=== PATIENT | female | born 1985 | race African-American/Black ===

== ENCOUNTER 2021-01-26 01:02 | Inpatient (IN) | payer MEDICAID, OTHER ==
[~2021-01-26] VITALS: Ht 152.4 cm; Wt 91.2 kg
[2021-01-26] MEDS ORDERED: BUTORPHANOL TARTRATE 2 MG/ML VIAL IV PRN (02:30)
[2021-01-26] MEDS ORDERED: NALOXONE HCL 0.4 MG/ML 1ML VIAL IM PRN (02:30)
[2021-01-26] MEDS ORDERED: METHYLERGONOVINE MALEATE 0.2 MG/ML IM PRN (02:30)
[2021-01-26] MEDS ORDERED: CLINDAMYCIN 900 MG in DEXTROSE 5% WATER 50 ML IV SCH (02:30)
[2021-01-26] MEDS: LACTATED RINGERS 1,000 ML IV SCH ×2 (02:44→09:09)
[2021-01-26] MEDS ORDERED: CARBOPROST TROMETHAMINE 250 MCG/ML AMPUL IM PRN (03:00)
[2021-01-26] MEDS ORDERED: LIDOCAINE HCL 1% 20ML VIAL (Pyxis) INJ INFIL SCH (03:00)
[2021-01-26] MEDS ORDERED: DEXT 5%/LR + PITOCIN 20UNITS/L 1,000 ML IV SCH (03:00)
[2021-01-26] MEDS ORDERED: MISOPROSTOL 200MCG TABLET VG NR (03:00)
[2021-01-26] MEDS: CLINDAMYCIN IN 0.9 % SOD CHLOR 50 ML IV SCH ×2 (03:23→11:29)
[2021-01-26 03:28] LABS: BASOPHILS % 0.7 % (0.0-2.0); EOSINOPHILS % 1.4 % (0.0-5.0); HEMATOCRIT. 43.1 % (36.0-48.0); HEMOGLOBIN. 14.6 g/dL (12.0-16.0); LYMPHOCYTES % 26.2 % (20.0-50.0); MEAN CORPUSCULAR HEMOGLOBIN 30.8 pg (28.0-32.0); MEAN CORPUSCULAR VOLUME 90.6 fL (81.0-99.0); MONOCYTES % 8.5 % (2.0-8.0); NEUTROPHILS % 63.2 % (40.0-76.0); PLATELET 257 x1000/uL (130-400); RED BLOOD CELL COUNT 4.76 mill/uL (4.2-5.4); RED CELL DISTRIBUTION WIDTH 14.6 % (11.6-14.6)
[2021-01-26 03:32] LABS: CLARITY URINE TURBID (CLEAR); COLOR URINE YELLOW (YELLOW); KETONES URINE 1+ (NEGATIVE); LEUKOCYTE ESTERASE URINE TRACE (NEGATIVE); NITRITE URINE NEGATIVE (NEGATIVE); OCCULT BLOOD URINE TRACE (NEGATIVE); PH URINE 6.5 (4.5-8.0); PROTEIN URINE 2+ (NEGATIVE); SPECIFIC GRAVITY URINE 1.013 (1.005-1.030); UROBILINOGEN URINE 0.2 E.U./dL (0.2-1.0)
[2021-01-26 03:37] LABS: PARTIAL THROMBOPLASTIN TIME 28.1 sec (23.4-31.0); PROTHROMBIN TIME 10.7 sec (9.6-11.0)
[2021-01-26] MEDS ORDERED: PNV1TABL50 PO (03:39)
[2021-01-26] MEDS ORDERED: METFORMIN (03:39)
[2021-01-26 03:41] LABS: *AMPHETAMINES SCREEN URINE NEGATIVE (NEGATIVE); *BARBITURATES SCREEN URINE NEGATIVE (NEGATIVE); *BENZODIAZEPINES SCREEN URINE NEGATIVE (NEGATIVE); METHADONE URINE SCREEN NEGATIVE (NEGATIVE); OPIATES URINE SCREEN NEGATIVE (NEGATIVE)
[2021-01-26 03:42] LABS: *COCAINE SCREEN URINE NEGATIVE (NEGATIVE); CANNABINOID URINE SCREEN NEGATIVE (NEGATIVE); PHENCYCLIDINE URINE SCREEN NEGATIVE (NEGATIVE)
[2021-01-26 04:07] LABS: HEPATITIS B SURFACE ANTIGEN NEGATIVE
[2021-01-26] MEDS ORDERED: FENTANYL CITRATE/PF 50MCG/ML 2ML VIAL ONE (07:20)
[2021-01-26] MEDS ORDERED: ROPIVACAINE HCL/PF EPIDURAL 200 ML EPI ONE (07:20)
[2021-01-26] MEDS ORDERED: LIDOCAINE HCL 2%/EPINEPHRINE 1:100,000 20 ML VIAL INFIL ONE (07:43)
[2021-01-26] MEDS ORDERED: PHENYLEPHRINE HCL 10 MG/ML 1ML (IV VIAL) IV ONE (07:52)
[2021-01-26] MEDS ORDERED: TERBUTALINE SULFATE 1MG/ML VIAL SUBCUT PRN (08:00)
[2021-01-26] MEDS ORDERED: ACETAMINOPHEN WITH CODEINE 300/30MG TABLET PO PRN (15:15)
[2021-01-26] MEDS ORDERED: DIPHENHYDRAMINE 25MG CAPSULE PO PRN (15:15)
[2021-01-26] MEDS ORDERED: HEMORRHOIDAL SUPP PR PRN (15:15)
[2021-01-26] MEDS ORDERED: IBUPROFEN 400MG TABLET PO PRN (15:15)
[2021-01-26] MEDS ORDERED: BISACODYL 10MG SUPP PR PRN (15:15)
[2021-01-26] MEDS ORDERED: RHO(D) IMMUNE GLOBULIN 300 MCG/SYR IM PRN (15:15)
[2021-01-26] MEDS: IBUPROFEN 800MG TABLET PO PRN (16:28)
[2021-01-26 20:00] VITALS: BP 126/81
[2021-01-27] VITALS: BP 118/70
[2021-01-27 04:00] VITALS: BP 120/80
[2021-01-27 06:43] LABS: BASOPHILS % 0.5 % (0.0-2.0); EOSINOPHILS % 0.3 % (0.0-5.0); HEMATOCRIT. 36.2 % (36.0-48.0); HEMOGLOBIN. 12.2 g/dL (12.0-16.0); LYMPHOCYTES % 15.2 % (20.0-50.0); MEAN CORPUSCULAR HEMOGLOBIN 30.4 pg (28.0-32.0); MEAN CORPUSCULAR VOLUME 90.6 fL (81.0-99.0); MEAN PLATELET VOLUME 8.6 fl (7.4-10.4); MONOCYTES % 8.9 % (2.0-8.0); NEUTROPHILS % 75.1 % (40.0-76.0); PLATELET 211 x1000/uL (130-400); RED CELL DISTRIBUTION WIDTH 15.2 % (11.6-14.6)
[2021-01-27 08:00] VITALS: BP 112/75
[2021-01-27] MEDS: SIMETHICONE 80MG TABLET CHEW PO SCH ×3 (08:31→20:29)
[2021-01-27] MEDS: FERROUS SULFATE 325MG TABLET PO SCH ×3 (08:31→17:30)
[2021-01-27] MEDS: IBUPROFEN 800MG TABLET PO PRN ×2 (08:32→20:31)
[2021-01-27] MEDS: MAGNESIUM/ALUMINUM HYDROXIDE/SIMETHICONE 30ML UDC PO SCH ×5 (08:32→20:38)
[2021-01-27] MEDS ORDERED: PRENATAL VIT/FE FUMARATE/FA TABLET PO SCH (09:00)
[2021-01-27] MEDS ORDERED: METFORMIN HCL 500MG TABLET PO SCH (12:00)
[2021-01-27 16:00] VITALS: BP 90/57
[2021-01-27 20:00] VITALS: BP 124/85
[2021-01-27] MEDS: DOCUSATE SODIUM 100MG CAPSULE PO SCH ×2 (20:29→20:37)
[2021-01-28] VITALS: BP 118/82
[2021-01-28 04:00] VITALS: BP 113/89
[2021-01-28] MEDS ORDERED: IBUP-2030 PO (06:24)
[2021-01-28 07:45] VITALS: BP 111/81
== END 2021-01-29 09:55 | disposition left against medical advice (07) | DRG 560 ==
LOC: 8 EST LDRP 01:02 → OBSVTOIN 01:02 → 8EST 16:48
PROVIDERS: ADMIT Obstetrics & Gynecology; ATTEND Obstetrics & Gynecology
PROC: 10E0XZZ Delivery of Products of Conception, External Approach (ICD-10-PCS; principal; 2021-01-26)
PROC: 3E0R3BZ Introduction of Anesthetic Agent into Spinal Canal, Percutaneous Approach (ICD-10-PCS; 2021-01-26)
PROC: 00HU33Z Insertion of Infusion Device into Spinal Canal, Percutaneous Approach (ICD-10-PCS; 2021-01-26)
DX: O42.913 Preterm premature rupture of membranes, unspecified as to length of time between rupture and onset of labor, third trimester (principal); Z37.0 Single live birth; O24.425 Gestational diabetes mellitus in childbirth, controlled by oral hypoglycemic drugs; Z20.822 Contact with and (suspected) exposure to COVID-19; O69.81X0 Labor and delivery complicated by cord around neck, without compression, not applicable or unspecified; Z3A.35 35 weeks gestation of pregnancy; Z88.0 Allergy status to penicillin
CPT/HCPCS: 36415; 76805; 76818; 80305; 81003; 82962; 85025; 86592; 86703; 86762; 86850; 86900; 87340; 87426; 99281; J0595; J2370; J2590; J2795; J3010; J3490; J7120; A4315

== ENCOUNTER 2023-01-25 10:53 | Observation (INO) | payer OTHER ==
[~2023-01-25 10:53] MED LIST: CALC-1042 PO; FERR325T6 PO; IBUP-2030 PO; METF-414 PO; METFORMIN; PNV1TABL50 PO; PV W1TAB21 PO
[2023-02-15] MEDS ORDERED: IBUP-2030 MT ×2 (20:08→20:10)
== END 2023-01-25 14:10 | disposition home or self-care (01) ==
LOC: 8 EST LDRP 10:53
PROVIDERS: ADMIT Obstetrics & Gynecology; ATTEND Obstetrics & Gynecology
DX: O24.419 Gestational diabetes mellitus in pregnancy, unspecified control (principal); O36.8330 Maternal care for abnormalities of the fetal heart rate or rhythm, third trimester, not applicable or unspecified; Z3A.35 35 weeks gestation of pregnancy
CPT/HCPCS: 59025; 82962; 76815; 76818; G0378 ×2

== ENCOUNTER 2023-01-27 11:22 | Observation (INO) | payer OTHER | END 2023-01-27 13:25 | disposition home or self-care (01) | LOC: 8 EST LDRP 11:22 | PROVIDERS: ADMIT Obstetrics & Gynecology; ATTEND Obstetrics & Gynecology | DX: O24.419 Gestational diabetes mellitus in pregnancy, unspecified control (principal); Z3A.35 35 weeks gestation of pregnancy | CPT/HCPCS: 59025; 76818; 82962; 76815; G0378 ==

== ENCOUNTER 2023-02-03 14:04 | Observation (INO) | payer OTHER ==
[~2023-02-03] VITALS: Ht 154.9 cm; Wt 99.3 kg
[~2023-02-03 14:04] MED LIST changes: -IBUP-2030 PO
== END 2023-02-03 15:45 | disposition home or self-care (01) ==
LOC: 8 EST LDRP 14:04
PROVIDERS: ADMIT Obstetrics & Gynecology; ATTEND Obstetrics & Gynecology
DX: O62.9 Abnormality of forces of labor, unspecified (principal); Z3A.37 37 weeks gestation of pregnancy
CPT/HCPCS: 59025; 76818; 76805; G0378; G0379

== ENCOUNTER 2023-02-06 12:55 | Observation (INO) | payer OTHER ==
[~2023-02-06] VITALS: Ht 154.9 cm; Wt 99.3 kg
== END 2023-02-06 14:35 | disposition home or self-care (01) ==
LOC: 8 EST LDRP 12:55
PROVIDERS: ADMIT Obstetrics & Gynecology; ATTEND Obstetrics & Gynecology
DX: O42.92 Full-term premature rupture of membranes, unspecified as to length of time between rupture and onset of labor (principal); O36.8330 Maternal care for abnormalities of the fetal heart rate or rhythm, third trimester, not applicable or unspecified; Z3A.37 37 weeks gestation of pregnancy; Z79.899 Other long term (current) drug therapy
CPT/HCPCS: 59025; 76818; 82962; 76815; G0378; 99281; G0379

== ENCOUNTER 2024-07-11 21:57 | Emergency (ER) | payer OTHER ==
[~2024-07-11] VITALS: Ht 157.5 cm; Wt 82.0 kg
[~2024-07-11 21:57] MED LIST changes: +IBUP-2030 MT
[2024-07-11 22:11] VITALS: PULSE 99; O2SAT 97
[2024-07-11 22:22] VITALS: BP 132/90; RESP 16; TEMP 36.7; O2SAT 99
== END 2024-07-11 23:15 | disposition left against medical advice (07) ==
LOC: ER 21:57
DX: L02.412 Cutaneous abscess of left axilla (principal); L02.411 Cutaneous abscess of right axilla; Z53.21 Procedure and treatment not carried out due to patient leaving prior to being seen by health care provider